=== PATIENT | female | born 1995 | race American Indian/Alaskan Native ===

== ENCOUNTER 2017-07-01 16:57 | Emergency (ER) | payer MEDICAID, OTHER ==
[2017-07-01 16:57] VITALS: BMI 24.3
[2017-07-01] MEDS ORDERED: Iohexol 240 (50 ml) PO STA (17:33)
[2017-07-01] MEDS ORDERED: Sodium Chloride 0.9% 1,000 ML IV ONE (17:33)
[2017-07-01] MEDS ORDERED: Sodium Chloride 0.9% 1,000 ML ONE (17:39)
[2017-07-01] MEDS ORDERED: Iohexol 240 (50 ml) ONE (17:39)
[2017-07-01 18:00] LABS: BASO # 0.1 K/uL (0.0-0.2); EOS # 0.1 K/uL (0.0-0.7); EOS % 1.6 % (0.0-4.0); HEMATOCRIT 38.6 % (34.0-47.0); LYMPH % 25.2 % (20.0-40.0); MEAN CELL VOLUME 79.8 fL (81.0-99.0); MEAN CORPUSCULAR HEMOGLOBIN 26.9 pg (27.0-31.0); MEAN CORPUSCULAR HGB CONC 33.7 g/dL (33.0-37.0); MEAN PLATELET VOLUME 8.7 fL (7.2-11.7); MONO # 0.6 K/uL (0.0-0.8); NRBC % 0.1 % (0.0-2.0); RED CELL DISTRIBUTION WIDTH 15.1 % (11.5-14.5); WHITE BLOOD COUNT 8.1 K/uL (4.8-10.8)
[2017-07-01 18:02] LABS: CHLORIDE 102 mmol/L (98-107); POTASSIUM 3.4 mmol/L (3.6-5.2); SODIUM 138 mmol/L (132-148)
[2017-07-01 18:04] LABS: AST/SGOT 16 U/L (14-36); CARBON DIOXIDE 23 mmol/L (22-30); GFR AFRICAN-AMERICAN > 60
[2017-07-01 18:05] LABS: ALB/GLOB RATIO 1.1 (1.0-2.1); ALKALINE PHOSPHATASE 65 U/L (38-126); ALT/SGPT 28 U/L (9-52); BLOOD UREA NITROGEN 7 mg/dL (7-17); CALCIUM 9.5 mg/dl (8.6-10.4); GLUCOSE,RANDOM 89 mg/dL (65-105)
[2017-07-01 19:11] LABS: RBC URINE < 1 /hpf (0-3); URINE BILIRUBIN NEGATIVE (NEGATIVE); URINE BLOOD NEGATIVE (NEGATIVE); URINE COLOR Yellow (YELLOW); URINE GLUCOSE (UA) NORMAL (Normal); URINE KETONE TRACE mg/dL (NEGATIVE); URINE LEUKOCYTE ESTERASE NEG Leu/uL (Negative); URINE PROTEIN NEGATIVE (NEGATIVE); URINE UROBILINOGEN NORMAL mg/dL (0.2-1.0); WBC URINE < 1 /hpf (0-5)
[2017-07-01 19:12] LABS: URINE BACTERIA RARE (<OCC)
[2017-07-01] MEDS ORDERED: Iohexol 350mg/ml 100 ML ONE (19:20)
[2017-07-01 19:45] VITALS: BP 142/84; PULSE 82; RESP 18; TEMP 97.7; O2SAT 100
--- NOTE | 2017-07-01 20:21 | C.PDOC ---
History Of Present Illness 22 year old female presents to the ED with complaints of nausea, vomiting, and slight decrease in PO intake for three days. Patient denies fever, chills, vaginal bleeding, vaginal discharge, dysuria, hematuria, or recent travel. Time Seen by Provider: 07/01/17 17:23 Chief Complaint (Nursing): Abdominal Pain History Per: Patient History/Exam Limitations: no limitations Onset/Duration Of Symptoms: Days (3 days ) Current Symptoms Are (Timing): Still Present Radiation Of Pain To:: None Associated Symptoms: Nausea, Vomiting, Loss Of Appetite (slightly decreased PO intake ). denies: Fever, Chills, Urinary Symptoms Recent travel outside of the [place]: No Abnormal Vaginal Bleeding: No Past Medical History Reviewed: Historical Data, Nursing Documentation, Vital Signs Vital Signs: Last Vital Signs Temp 97.7 F 07/01/17 19:44 Pulse 82 07/01/17 19:44 Resp 18 07/01/17 19:44 BP 142/84 07/01/17 19:44 Pulse Ox 100 07/01/17 20:24 - Medical History PMH: Anemia Family History: States: Unknown Family Hx - Social History Hx Tobacco Use: Yes Hx Alcohol Use: Yes Hx Substance Use: Yes - Immunization History Hx Tetanus Toxoid Vaccination: No Hx Influenza Vaccination: No Hx Pneumococcal Vaccination: No Review Of Systems Constitutional: Positive for: Other (slightly decreased PO intake ). Negative for: Fever, Chills Cardiovascular: Negative for: Chest Pain Respiratory: Negative for: Shortness of Breath Gastrointestinal: Positive for: Nausea, Vomiting Genitourinary: Negative for: Dysuria, Hematuria, Vaginal Discharge, Vaginal Bleeding Physical Exam - Physical Exam Appears: Non-toxic, No Acute Distress Skin: Warm, Dry, Other (Midline surgical scar ) Head: Atraumatic Eye(s): bilateral: Normal Inspection Oral Mucosa: Moist Neck: Supple Chest: Symmetrical, No Deformity Cardiovascular: Rhythm Regular Respiratory: Normal Breath Sounds, No Rales, No Rhonchi, No Wheezing Gastrointestinal/Abdominal: Soft, No Tenderness, No Distention, No Guarding, No Rebound Extremity: Normal ROM, No Tenderness Neurological/Psych: Oriented x3, Normal Speech, Normal Cognition ED Course And Treatment - Laboratory Results Result Diagrams: 07/01/17 17:50 07/01/17 17:50 O2 Sat by Pulse Oximetry: 100 (room air ) Progress Note: Labs and urine were reviewed with a positive test. Patient made aware and instructed to follow up with her OB or OB clinic. Disposition - Disposition Referrals: [facility] [Outside] [facility] [Outside] Disposition: HOME/ ROUTINE Disposition Time: 19:20 Condition: IMPROVED Additional Instructions: Thank you for letting us take care of you today. Your provider was Dr. Aceves. You were treated for vomiting in . The emergency medical care you received today was directed at your acute symptoms. If you were prescribed any medication, please fill it and take as directed. It may take several days for your symptoms to resolve. Return to the Emergency Department if your symptoms worsen, do not improve, or if you have any other problems. Please contact your doctor or call one of the physicians/clinics you have been referred to that are listed on the Patient Visit Information form that is included in your discharge packet. Bring any paperwork you were given at discharge with you along with any medications you are taking to your follow up visit. Our treatment cannot replace ongoing medical care by a primary care provider (PCP) outside of the emergency department. Thank you for allowing the [facility] team to be part of your care today. Follow up with your OB doctor or our clinic in 3-5 days for re-evaluation and further management. Prescriptions: Vit No.126/Iron/Folic [Classic Tablet] 1 each PO DAILY #30 tablet Instructions: Morning Sickness (ED), (ED) - Clinical Impression Clinical Impression: - Scribe Statement The provider has reviewed the documentation as recorded by the Scribe Jaye Leach All medical record entries made by the Scribe were at my direction and personally dictated by me. I have reviewed the chart and agree that the record accurately reflects my personal performance of the history, physical exam, medical decision making, and the department course for this patient. I have also personally directed, reviewed, and agree with the discharge instructions and disposition.
== END 2017-07-01 19:45 | disposition home or self-care (01) ==
LOC: C.ER 16:57
DX: O26.899 Other specified pregnancy related conditions, unspecified trimester (principal)
CPT/HCPCS: 80053; 81001; 83690; 84703; 85025; 87086; 96361; 96374; 96375; 99284; J2405; J7040; Q9966; Q9967

== ENCOUNTER 2018-07-16 13:20 | Emergency (ER) | payer MEDICAID, OTHER ==
[2018-07-16 13:20] VITALS: BMI 24.3
[2018-07-16 13:38] VITALS: BP 145/96; PULSE 108; RESP 18; TEMP 99.5; O2SAT 100
--- NOTE | 2018-07-16 14:21 | C.PDOC ---
History Of Present Illness 23 y/o female presents to the ED requesting a urine test. Patient states test was positive at home 2 days ago. She reports mild pelvic cramping. Otherwise patient denies any nausea, vomiting, vaginal bleeding or discharge. Time Seen by Provider: 07/16/18 13:51 Chief Complaint (Nursing): Female Genitourinary History Per: Patient History/Exam Limitations: no limitations Onset/Duration Of Symptoms: Days Current Symptoms Are (Timing): Still Present Past Medical History Reviewed: Historical Data, Nursing Documentation, Vital Signs Vital Signs: Last Vital Signs Temp 99.5 F 07/16/18 13:36 Pulse 108 H 07/16/18 13:36 Resp 18 07/16/18 13:36 BP 145/96 H 07/16/18 13:36 Pulse Ox 100 07/16/18 14:22 - Medical History PMH: Anemia Family History: States: Unknown Family Hx - Social History Hx Tobacco Use: Yes Hx Alcohol Use: Yes Hx Substance Use: Yes - Immunization History Hx Tetanus Toxoid Vaccination: No Hx Influenza Vaccination: No Hx Pneumococcal Vaccination: No Review Of Systems Except As Marked, All Systems Reviewed And Found Negative. Constitutional: Positive for: Other (requesting urine HCG). Negative for: Fever Gastrointestinal: Negative for: Nausea, Vomiting, Abdominal Pain Genitourinary: Positive for: Pelvic Pain (mild, crampy). Negative for: Dysuria , Frequency, Incontinence, Vaginal Discharge, Vaginal Bleeding Musculoskeletal: Negative for: Back Pain Physical Exam - Physical Exam Appears: Non-toxic, No Acute Distress Skin: Warm, Dry Head: Atraumatic, Normacephalic Eye(s): bilateral: Normal Inspection Neck: Normal ROM Chest: Symmetrical Cardiovascular: Rhythm Regular, No Murmur Respiratory: Normal Breath Sounds, No Accessory Muscle Use Gastrointestinal/Abdominal: Bowel Sounds (active), Soft, No Tenderness, No Guarding, No Rebound Extremity: Bilateral: Atraumatic, Normal Color And Temperature, Normal ROM Neurological/Psych: Oriented x3, Normal Speech ED Course And Treatment - Laboratory Results Lab Interpretation: Normal (ua neg) Urine POC: Negative O2 Sat by Pulse Oximetry: 100 (RA) Pulse Ox Interpretation: Normal Medical Decision Making Medical Decision Making: Plan: * Urinalysis * Urine HCG Results discussed w/ patient. early preg confirmed not interested in termination no UTI NO s/s of ectopic opt f/u @ OB Clinic. Disposition Doctor Will See Patient In The: Office Counseled Patient/Family Regarding: Studies Performed, Diagnosis - Disposition Disposition: HOME/ ROUTINE Disposition Time: 15:03 Condition: GOOD Forms: [facility] (Uzbek) - Clinical Impression Clinical Impression: confirmed by positive urine test - Scribe Statement The provider has reviewed the documentation as recorded by the Jg Medina Provider Attestation: All medical record entries made by the Jg were at my direction and personally dictated by me. I have reviewed the chart and agree that the record accurately reflects my personal performance of the history, physical exam, medical decision making, and the department course for this patient. I have also personally directed, reviewed, and agree with the discharge instructions and disposition.
[2018-07-16 14:40] LABS: HCG,QUALITATIVE URINE POSITIVE (NEGATIVE)
[2018-07-16 14:46] LABS: SQUAMOUS EPITHIAL 9 /hpf (0-5); URINE BACTERIA RARE (<OCC); URINE BILIRUBIN NEGATIVE (NEGATIVE); URINE BLOOD NEGATIVE (NEGATIVE); URINE CLARITY Hazy (Clear); URINE COLOR Yellow (YELLOW); URINE GLUCOSE (UA) NORMAL (Normal); URINE LEUKOCYTE ESTERASE NEG Leu/uL (Negative); URINE PROTEIN NEGATIVE (NEGATIVE); URINE UROBILINOGEN NORMAL mg/dL (0.2-1.0)
== END 2018-07-16 15:20 | disposition home or self-care (01) ==
LOC: C.ER 13:20
DX: Z32.01 Encounter for pregnancy test, result positive (principal)

== ENCOUNTER 2019-01-28 14:31 | Emergency (ER) | payer OTHER ==
[2019-01-28 14:40] VITALS: BMI 29.7
[2019-01-28 14:44] VITALS: BP 110/76; RESP 20
--- NOTE | 2019-01-28 15:26 | C.PDOC ---
History Of Present Illness Patient complains of feeling body aches, tired, runny nose, eyes tearing and burning for the past 3 days. She thinks it might be the flu, did not have vaccine. Patient is 32 weeks . She denies any neck pain, chest pain, SOB, abdominal pain, vomiting, diarrhea, vaginal bleeding or dysuria. Time Seen by Provider: 01/28/19 14:57 Chief Complaint (Nursing): Flu-like Symptoms History Per: Patient History/Exam Limitations: no limitations Onset/Duration Of Symptoms: Days (x 3) Current Symptoms Are (Timing): Still Present Associated Symptoms: Myalgias, Nasal Congestion Past Medical History Reviewed: Historical Data, Nursing Documentation, Vital Signs Vital Signs: Last Vital Signs Temp 99.1 F 01/28/19 14:40 Pulse 109 H 01/28/19 14:40 Resp 20 01/28/19 14:40 BP 110/76 01/28/19 14:40 Pulse Ox 97 01/28/19 14:40 - Medical History PMH: Anemia Other Surgeries: Abdominal surgery for GI bleed Family History: States: Unknown Family Hx - Social History Hx Tobacco Use: Yes Hx Alcohol Use: No Hx Substance Use: No - Immunization History Hx Tetanus Toxoid Vaccination: No Hx Influenza Vaccination: No Hx Pneumococcal Vaccination: No Review Of Systems Constitutional: Positive for: Malaise, Other (Body aches). Negative for: Fever Eyes: Positive for: Other (Eyes tearing and burning) ENT: Positive for: Nose Discharge Cardiovascular: Negative for: Chest Pain Respiratory: Negative for: Shortness of Breath Gastrointestinal: Negative for: Vomiting, Abdominal Pain, Diarrhea Genitourinary: Negative for: Dysuria, Vaginal Bleeding Musculoskeletal: Negative for: Neck Pain Neurological: Negative for: Headache Physical Exam - Physical Exam Appears: Non-toxic, No Acute Distress Skin: Warm, Dry, No Rash Head: Atraumatic, Normacephalic Eye(s): bilateral: Normal Inspection Ear(s): Bilateral: Normal (TMs clear) Nose: Discharge (clear rhinorrhea) Oral Mucosa: Moist Throat: Normal (Oropharynx clear), No Erythema, No Exudate Neck: Normal ROM Chest: Symmetrical Cardiovascular: Rhythm Regular, No Murmur Respiratory: Normal Breath Sounds, No Rales, No Rhonchi, No Wheezing Gastrointestinal/Abdominal: Soft, No Tenderness, No Guarding, Other (Gravid abdomen) Back: No CVA Tenderness, No Vertebral Tenderness Extremity: Bilateral: Atraumatic, Normal Color And Temperature, Normal ROM Neurological/Psych: Oriented x3, Normal Speech ED Course And Treatment O2 Sat by Pulse Oximetry: 97 (RA) Pulse Ox Interpretation: Normal Medical Decision Making Medical Decision Making: Impression: Flu-like symptoms during Plan: - Flu swab Flu negative. Patient remained afebrile and in no distress. Based on history and exam symptoms likely related to allergies and/or viral. Recommend supportive care Disposition Counseled Patient/Family Regarding: Diagnosis, Need For Followup - Disposition Referrals: Mj Bonilla MD [Staff Provider] - Disposition: HOME/ ROUTINE Disposition Time: 15:50 Condition: STABLE Additional Instructions: You can take claritin available at any drug store daily You can use saline nasal spray Tylenol for any fever Follow up with your doctor if no improvement in 3-4 days. 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 - Scribe Statement The provider has reviewed the documentation as recorded by the Jg Medina All medical record entries made by the Ivisibe were at my direction and personally dictated by me. I have reviewed the chart and agree that the record accurately reflects my personal performance of the history, physical exam, medical decision making, and the department course for this patient. I have also personally directed, reviewed, and agree with the discharge instructions and disposition.
[2019-01-28 15:52] VITALS: PULSE 107; TEMP 99
[2019-01-28 18:01] VITALS: O2SAT 97
== END 2019-01-28 15:55 | disposition home or self-care (01) ==
LOC: C.ER 14:31
DX: J30.9 Allergic rhinitis, unspecified (principal)

== ENCOUNTER 2019-03-25 04:02 | Inpatient (IN) | payer OTHER ==
[2019-03-25] MEDS ORDERED: Lidocaine 2% MPF (5 ml) Inj ONE ×2 (04:34→04:48)
--- NOTE | 2019-03-25 05:12 | OBDS ---
DELIVERY PERSONNEL Delivery Doctor: Ambar Villalobos MD Barrel Rifler Hook: Suellen Perera RN MATERNAL INFORMATION Delivery Anesthesia: Local Medications in Delivery: Pitocin 20 units IV Estimated Blood Loss (ml): 500 Placenta Cultured: No Maternal Complications: None Provider Comments: AROM at 0415 hours. Vaginal delivery of live male , over intact perieneum , BRUCE position at 0416 hours Infant's mouth and nose bulb-suctioned on perineum; placed on mother's ab domen. Delayed cord clamping. Spontaneous delivery of placenta - grossly intact and 3 vessels Uterine exploration performed - uterus contracted and firm Cervix, vagina, perineum inspected - lacerations as above. Repair as above. Mother tolerated procedure well - bonding with . Patient does not deisre to breastfeed. taken to [facility] in stable condition EBL 500 mL Weight 9lbs 's 9/9 LABOR SUMMARY EDC: 03/23/2019 00:00 No. Babies in Womb: 1 Attempted: No Labor Anesthesia: None LABOR INFORMATION Reason for Induction: Not Applicable Onset of Labor: 03/25/2019 02:00 Complete Dilatation: 03/25/2019 04:10 Oxytocin: N/A Group B Beta Strep: Negative Antibiotics # of Doses: 0 Steroids Given: None Reason Steroids Not Administered: Not Applicable MEMBRANES Membranes Rupture Method: Artificial Rupture of Membranes: 03/25/2019 04:10 Length of Rupture (hrs): 0.10 Amniotic Fluid Color: Clear Amniotic Fluid Amount: Moderate Amniotic Fluid Odor: Normal STAGES OF LABOR Stage 1 hrs: 2 Stage 1 min: 10 Stage 2 hrs: 0 Stage 2 min: 6 Stage 3 hrs: 0 Stage 3 min: 6 Total Time in Labor hrs: 2 Total Time in Labor min: 22 VAGINAL DELIVERY Laceration Extension: First Degree Laceration Type: Vaginal; Periurethral Laceration Repair Note: 3-0 chromic in routine fashion. hemostasis assured. Patient tolerated proced ure well. In stable condition Initial Vag Sponge Count: 10 Final Vag Sponge Count: 10 Initial Vag Sharps Count: 1 Final Vag Sharps Count: 1 Sponge Count Correct: Yes; Vaginal Sweep Performed Sharps Count Correct: Yes BABY A INFORMATION Infant Delivery Date/Time: 03/25/2019 04:16 Method of Delivery: Vaginal SHOULDER DYSTOCIA BABY A Infant Delivery Date/Time: 03/25/2019 04:16 PRESENTATION/POSITION BABY A Presentation: Cephalic Cephalic Presentation: Vertex Vertex Position: Left Occipital Anterior Breech Presentation: N/A PLACENTA INFORMATION BABY A Placenta Delivery Time : 03/25/2019 04:22 Placenta Method of Delivery: Spontaneous SCORES BABY A Heart Rate 1 min: >100 bpm Resp Effort 1 min: Good Cry Reflex Irritability 1 min: Cough or Sneeze or Pulls Away Muscle Tone 1 min: Active Motion Color 1 min: Body [place], Extremities Blue SCORE 1 MIN: 9 Heart Rate 5 min: >100 bpm Resp Effort 5 min: Good Cry Reflex Irritability 5 min: Cough or Sneeze or Pulls Away Muscle Tone 5 min: Active Motion Color 5 min: Body [place], Extremities Blue SCORE 5 MIN: 9 INFANT INFORMATION BABY A Gestational Age at Delivery: 40.0 Gestational Status: Term Outcome : Liveborn Condition : Stable IDENTIFICATION/MEDS BABY A ID Band Number: [id number] ID Band Location: Left Leg; Left Arm Sensor Applied: Yes Sensor Number: [id number] Sensor Location : Cord Clamp Vitamin K Given : Aquamephyton 1 mg IM Erythromycin Given: Given Both Eyes WEIGHT/LENGTH BABY A Birthweight (gms): 4080 Weight (lb): 9 Weight (oz): 0 Infant Length Inches: 20.00 Length cms: 50.8 CORD INFORMATION BABY A Nuchal Cord : N/A Infant Suction: None ASSESSMENT BABY A Infant Complications: None Physical Findings at Delivery: Within Normal Limits Respirations: Appears Normal It Programmer/ALS Called : No Infant Care By: Lorna Rao Transferred To: Remains with Mother
--- NOTE | 2019-03-25 05:24 | OBHP ---
Datetime: 03/25/2019 05:10 IP Adm Impression: Term, intrauterine ; Active labor IP Admit Plan: Admit to unit; Initiate labor protocol Admit Comment, IP Provider: 23 y.o. LMP 06/19/2018, ARSH 03/23/19, EGA 40w 2d came FD. Onset of CTx 0200 hours. (+) FM; denies LOF, VB care: [facility] -no issues P Ob: 2016, , female, 7lbs, [facility]; no complications. VTOP x 2: 2011, 2016, both in first trimest er, with D_C, no complications. 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 Denies STIs abnormal pap PMH: denies PSH: 2011, expl lap for "internal bleeding" - "I don't what they did" (+) blood transfusion; hospi talized for "a couple of weeks" NKDA Meds: ONV Soc Hx: denies tobacco, ilicit drug or EtOH use. Lives with her mother and her daughter. FOB invol chuy Fam hx: Mother alive 45 y.o. Breast CA survivor. Father alive 43 y.o. no med issues. No other fam h/o cancer P.E.: as above. WD in pain with Ctx. Awake, alert, oriented to time, person, place. Assessment: 23 y.o. P1021, 40w 2d, S/P vaginal delivery. See delivery record. Clinically stable. Plan: 1) Admit 2) Routine post care Pelvic Type - PN: Adequate Extremities - PN: Normal Abdomen - PN: Normal Lungs - PN: Normal Heart - PN: Normal Neurologic - PN: Normal HEENT - PN: Normal General - PN: Normal Presentation-Admit: Vertex FHR - Baseline A Provider: 140 Contraction Comments Provider: 2-3 Comments, ACOG Physical Exam: Abdomen: Gravid. Firm with Ctx. Healed midline vertical scar Gestation - Est Wks by US: 40w 2d IP Hx Assessment: The History has been Reviewed and is Current EGA AdmitDate IP: 40.2 IP Indication for Induction: Not Applicable IP Chief Complaint: Uterine contractions NICHD Decel Fetus A IP Provider: Early Dilatation, Provider: 10 Effacement, Provider: 100 Station, Provider: 2 Genitourinary Exam: Normal
[2019-03-25 05:27] LABS: BASO % 0.3 % (0.0-2.0); EOS # 0.1 K/uL (0.0-0.7); EOS % 0.7 % (0.0-4.0); HEMOGLOBIN 12.4 g/dL (11.0-16.0); LYMPH # 3.6 K/uL (1.0-4.3); LYMPH % 36.4 % (20.0-40.0); MEAN CELL VOLUME 85.8 fL (81.0-99.0); MEAN CORPUSCULAR HEMOGLOBIN 30.1 pg (27.0-31.0); MEAN CORPUSCULAR HGB CONC 35.1 g/dL (33.0-37.0); MEAN PLATELET VOLUME 9.3 fL (7.2-11.7); MONO # 0.8 K/uL (0.0-0.8); MONO % 8.4 % (0.0-10.0); NEUT # 5.4 K/uL (1.8-7.0); NEUT % 54.2 % (50.0-75.0); NRBC % 0.2 % (0.0-2.0); RBC 4.13 Mil/uL (3.80-5.20); RED CELL DISTRIBUTION WIDTH 14.4 % (11.5-14.5)
[2019-03-25] MEDS ORDERED: Benzocaine/Menthol 20%-0.5% Topical Spray (60 ml) TOP PRN (05:27)
[2019-03-25] MEDS ORDERED: Oxycodone/Acetaminophen 5/325 mg Tab PO PRN (05:27)
[2019-03-25 05:59] LABS: ALB/GLOB RATIO 1.1 (1.0-2.1); ALBUMIN 3.6 g/dL (3.5-5.0); ALT/SGPT 12 U/L (9-52); AST/SGOT 20 U/L (14-36); CALCIUM 9.5 mg/dl (8.6-10.4); GFR NON-AFRICAN AMERICAN > 60
[2019-03-25 06:36] LABS: BLOOD UREA NITROGEN < 2 mg/dL (7-17)
[2019-03-25] MEDS: Multiple Vitamins Tab PO SCH (10:02)
[2019-03-26 08:09] LABS: BASO # 0.1 K/uL (0.0-0.2); BASO % 0.6 % (0.0-2.0); EOS # 0.1 K/uL (0.0-0.7); EOS % 0.9 % (0.0-4.0); HEMOGLOBIN 10.8 g/dL (11.0-16.0); LYMPH # 2.7 K/uL (1.0-4.3); LYMPH % 24.4 % (20.0-40.0); MEAN CELL VOLUME 85.9 fL (81.0-99.0); MEAN CORPUSCULAR HEMOGLOBIN 30.2 pg (27.0-31.0); MEAN CORPUSCULAR HGB CONC 35.2 g/dL (33.0-37.0); MEAN PLATELET VOLUME 9.3 fL (7.2-11.7); MONO # 0.8 K/uL (0.0-0.8); MONO % 7.2 % (0.0-10.0); NEUT # 7.4 K/uL (1.8-7.0); NEUT % 66.9 % (50.0-75.0); RBC 3.56 Mil/uL (3.80-5.20); RED CELL DISTRIBUTION WIDTH 14.5 % (11.5-14.5); WHITE BLOOD COUNT 11.1 K/uL (4.8-10.8)
--- NOTE | 2019-03-26 09:55 | OBPPN ---
Datetime: 03/26/2019 09:50 PP Pain Prov: Within normal limits PP Breasts Prov: Normal PP Abdomen/Uterus Prov: Normal PP Lochia Prov: Normal PP Progress Prov: Normal PP Impression Prov: Normal progression PP Plan Prov: Continue present management PP Progress Note Prov: A/P: s/p NSD PPD#1 stable and afebrile Bottle feeding Encourage ambulation Anticipate discharge home tomorrow IP PP Procedures: None
[2019-03-26] MEDS: Multiple Vitamins Tab PO SCH (10:00)
--- NOTE | 2019-03-27 07:46 | OBPPN ---
Datetime: 03/27/2019 07:44 PP Pain Prov: Within normal limits PP Abdomen/Uterus Prov: Normal PP Lochia Prov: Normal PP Vulva/Perineum Prov: Normal PP Impression Prov: Normal progression PP Plan Prov: Discharge PP Progress Note Prov: A/P: S/P PPD #2 - stable, afebrile - + bottle - d/c home IP PP Procedures: None Vital Signs Provider PP: Reviewed; Within Normal Limits
--- NOTE | 2019-03-27 07:48 | OBDCSUM ---
Datetime: 03/27/2019 07:45 Discharged to, Provider: Home Follow up at, Provider: Clinic Disch Instr Activity: Normal activity Disch Instr Diet: Regular Discharge Instructions, Provider: Routine instructions given Discharge Diagnosis, Provider: Term Delivered Discharge Time: 03/27/2019 07:45 Follow up in weeks, Provider: 6 wks Contraception after Delivery: Undecided
[2019-03-27] MEDS: Multiple Vitamins Tab PO SCH (10:02)
[2019-03-27 18:04] VITALS: BP 105/72; PULSE 80; RESP 18; TEMP 99.1; O2SAT 99
== END 2019-03-27 12:10 | disposition home or self-care (01) | DRG 373 ==
LOC: C.4D 04:02 → C.4M 06:35
PROVIDERS: ADMIT Obstetrics & Gynecology; ATTEND Obstetrics & Gynecology
PROC: 10E0XZZ Delivery of Products of Conception, External Approach (ICD-10-PCS; principal; 2019-03-25)
PROC: 0HQ9XZZ Repair Perineum Skin, External Approach (ICD-10-PCS; 2019-03-25)
PROC: 10907ZC Drainage of Amniotic Fluid, Therapeutic from Products of Conception, Via Natural or Artificial Opening (ICD-10-PCS; 2019-03-25)
DX: O70.0 First degree perineal laceration during delivery (principal); Z3A.40 40 weeks gestation of pregnancy; Z37.0 Single live birth